=== PATIENT | female | born 1945 | race Caucasian/White ===

== ENCOUNTER 2021-05-23 22:17 | Emergency (ER) | payer MEDICARE, BC, SELFPAY ==
--- NOTE | 2021-05-23 22:22 | ED_ITS ---
HPI - Abdominal Pain General Chief Complaint: Abdominal Pain Stated Complaint: states krishna bowel issues Time Seen by Provider: 05/23/21 22:22 History of Present Illness HPI narrative: 76-year-old female nonsmoker with history of hyperlipidemia presents with her at the request of her primary care provider at the [facility]. She had been having various gastrointestinal issues for the past week or so. She states that started with some nausea that was treated with antiemetics and after few days that seemed to improve but since then she has had abdominal discomfort that seems colicky in nature without any obvious provocation or palliation, perhaps slight improvement briefly after a loose stool. She has had a significant number of loose stools and even has been wearing a pad as she has had leakage from her rectum. She was seen and evaluated earlier today and had an x-ray that shows possible ileus without any obvious signs of obstruction. Exam noted a large amount of firm stool in the rectal vault. She denies any fever or chills. She is not dizzy nor weak or lightheaded. She denies any change in appetite or medications. She denies recent international travel, exposure to bad food or other ill persons. She was given a [facility] past and sent here by her medical team for further evaluation Related Data Home Medications Medication Instructions Recorded Confirmed pravastatin 40 mg tablet 40 mg PO DAILY 05/16/21 05/16/21 Previous Rx's Medication Instructions Recorded ondansetron 4 mg disintegrating 4 - 8 mg PO Q8H PRN #30 tab 05/16/21 tablet doxycycline hyclate 100 mg tablet 100 mg PO BID #20 tab 05/24/21 hyoscyamine sulfate 0.125 mg tablet 0.125 mg PO BID-QID PRN #20 tab 05/24/21 Allergies Allergy/AdvReac Type Severity Reaction Status Date / Time No Known Drug Allergies Allergy Verified 05/23/21 22:44 Review of Systems Review of Systems Narrative: GENERAL: Denies chills, fatigue, malaise, fever, sweats. HEENT: Denies sinus pain, ear pain, sore throat, difficulty swallowing, dizziness. RESPIRATORY: Denies dyspnea, cough, wheezing, hemoptysis, sputum. CARDIOVASCULAR: Denies chest pain, palpitations, orthopnea, edema, GASTROINTESTINAL: See HPI : Denies dysuria, frequency, incontinence, hematuria, urinary retention. MUSCULOSKELETAL: denies weakness, joint pain, or bony pain SKIN: Denies rash, skin lesions, or other NEUROLOGIC: Denies weakness, headache, numbness, change in speech, confusion, seizures, incoordination. PSYCHIATRIC: No concerning psychosocial issues. 12 point review of systems is negative except for those stated above Patient History Medical History Allergies (~1960) Chicken pox (~1953) Eczema (~1999) Gluten intolerance (~2016) Marciano's disease (~2000) Headache (~2019) Herpes (~1989) Hip pain (~2004) Knee pain (~2004) Multiple food allergies (~1989) Osteoarthritis (~2004) Osteoporosis (~2009) Recurrent sinusitis (~1989) Rheumatoid arthritis (~2004) Rosacea (~1999) Shoulder pain (~2004) Surgical History Anesthesia History of cataract removal with insertion of prosthetic lens (~2020) History of hysterectomy (~1988) Family History Father History of heart disease Mother Cancer Brother Mental health problem Grandmother Diabetes mellitus Hypertension Social History Smoking Status: Never smoker Smoking Status: Never smoker Exam Narrative Exam Narrative: GENERAL: [76] year old patient appears stated age. Well-developed patient, in mild distress. HEAD: Atraumatic. Normocephalic. EYES: Pupils equal round and reactive. Extraocular motions intact. No scleral icterus. No injection or drainage. ENT: Nose without bleeding, purulent drainage. Throat without erythema, tonsillar hypertrophy or exudate. Airway patent. NECK: Trachea midline. Non tender CARDIOVASCULAR: Regular rate and rhythm without murmurs, gallops, or rubs. RESPIRATORY: Clear to auscultation. Breath sounds equal bilaterally. No wheezes, rales, or rhonchi. GASTROINTESTINAL: Abdomen soft, no distension, minimal tenderness, decreased bowel sounds throughout EXTREMITIES: No edema or joint tenderness. BACK: Nontender without deformity or crepitance. No flank tenderness. NEURO: AOx3. SKIN: No rash or erythema of visible areas Initial Vital Signs Initial Vital Signs: Vital Signs Temperature 97.9 F 05/23/21 22:41 Pulse Rate 77 05/23/21 22:41 Respiratory Rate 16 05/23/21 22:41 Blood Pressure 165/70 H 05/23/21 22:41 Pulse Oximetry 97 05/23/21 22:41 Course Orders Ordered: ED Orders 05/23/21 22:43 Complete Blood Count AUTO DIFF Stat Comprehensive Metabolic Panel Stat Partial Thromboplastin Time Stat Prothrombin Time INR Stat 05/23/21 22:45 Urine Culture Stat Urine Microscopic Stat 05/23/21 22:57 EKG-12 Lead Stat 05/23/21 23:32 CT abdomen pelvis w con Stat Discontinued Medications Doxycycline Hyclate (Doxycycline Hyclate 100 Mg Tablet) 100 mg PO NOW ONE Stop: 05/24/21 01:51 Last Admin: 05/24/21 02:01 Dose: 100 mg Documented by: GABY Vital Signs Vital signs: Vital Signs - 8 hr 05/23/21 23:30 05/24/21 00:04 05/24/21 00:06 Pulse Rate 70 70 69 Blood Pressure 145/65 H Pulse Oximetry 98 99 05/24/21 00:30 05/24/21 01:00 05/24/21 01:30 Pulse Rate 67 68 66 Blood Pressure 126/63 119/59 L 111/59 L Pulse Oximetry 99 96 96 05/24/21 02:00 Pulse Rate 72 Blood Pressure 119/58 L Pulse Oximetry 95 MDM - Abdominal Pain Lab Data Result diagrams: 05/23/21 22:43 05/23/21 22:43 Labs: Lab Results 05/23/21 05/23/21 05/23/21 Range/Units 22:43 22:43 22:43 WBC 7.5 (4.5-11.0) X10^3/uL RBC 4.43 (4.0-5.2) X10^6/uL Hgb 13.6 (12.0-16.0) g/dL Hct 41.4 (36-46) % MCV 93.4 (80-100) fL MCH 30.7 (26-34) PG MCHC 32.9 (30-36) % RDW 13.1 (11.6-14.8) % Plt Count 274 (150-400) X10^3/uL Neut % (Auto) 47.6 L (50-75) % Lymph % (Auto) 35.0 (25-40) % [place] % (Auto) 10.0 (3-14) % Eos % (Auto) 6.8 H (2-4) % Baso % (Auto) 0.6 (0-2) % Neut # (Auto) 3600 (8073-1435) /uL Lymph # (Auto) 2600 (7395-0038) /uL [place] # (Auto) 800 (0-900) /uL Eos # (Auto) 500 H (0-450) /uL Baso # (Auto) 0 (0-100) /uL PT 11.0 (10.1-12.7) SECONDS INR 1.0 (0.9-1.3) APTT 28 (26.4-36.2) SECONDS Sodium 137 (137-145) mmol/L Potassium 3.8 (3.4-5.1) mmol/L Chloride 101 (98-107) mmol/L Carbon Dioxide 33 H (22-32) mmol/L BUN 9 (7-17) mg/dL Creatinine 0.63 (0.52-1.04) mg/dL Estimated GFR > 60.0 (>60) mL/min BUN/Creatinine Ratio 14.3 (6-22) Glucose 110 (80-110) mg/dL Calcium 9.3 (8.4-10.2) mg/dL Total Bilirubin 0.6 (0.2-1.3) mg/dL AST 31 (14-36) IU/L ALT 27 (<35) IU/L Alkaline Phosphatase 47 (38-126) U/L Total Protein 8.1 (6.3-8.2) g/dL Albumin 4.6 (3.5-5.0) g/dL Globulin 3.5 (1.7-4.1) g/dL Albumin/Globulin Ratio 1.3 (1.0-2.8) Urine RBC (0-5/HPF) Urine WBC (0-5/HPF) Ur Squamous Epith Cells (0-5/HPF) Urine Bacteria (None) Ur Culture Indicated? 05/23/21 Range/Units 22:45 WBC (4.5-11.0) X10^3/uL RBC (4.0-5.2) X10^6/uL Hgb (12.0-16.0) g/dL Hct (36-46) % MCV (80-100) fL MCH (26-34) PG MCHC (30-36) % RDW (11.6-14.8) % Plt Count (150-400) X10^3/uL Neut % (Auto) (50-75) % Lymph % (Auto) (25-40) % [place] % (Auto) (3-14) % Eos % (Auto) (2-4) % Baso % (Auto) (0-2) % Neut # (Auto) (1084-1424) /uL Lymph # (Auto) (3065-2758) /uL [place] # (Auto) (0-900) /uL Eos # (Auto) (0-450) /uL Baso # (Auto) (0-100) /uL PT (10.1-12.7) SECONDS INR (0.9-1.3) APTT (26.4-36.2) SECONDS Sodium (137-145) mmol/L Potassium (3.4-5.1) mmol/L Chloride (98-107) mmol/L Carbon Dioxide (22-32) mmol/L BUN (7-17) mg/dL Creatinine (0.52-1.04) mg/dL Estimated GFR (>60) mL/min BUN/Creatinine Ratio (6-22) Glucose (80-110) mg/dL Calcium (8.4-10.2) mg/dL Total Bilirubin (0.2-1.3) mg/dL AST (14-36) IU/L ALT (<35) IU/L Alkaline Phosphatase (38-126) U/L Total Protein (6.3-8.2) g/dL Albumin (3.5-5.0) g/dL Globulin (1.7-4.1) g/dL Albumin/Globulin Ratio (1.0-2.8) Urine RBC 0-1/hpf (0-5/HPF) Urine WBC 1-5/hpf (0-5/HPF) Ur Squamous Epith Cells 0-1 /hpf (0-5/HPF) Urine Bacteria Occasional (0-1) (None) Ur Culture Indicated? Specimen cultured Point of care testing: Urine Dip Bedside Urine Glucose Negative Bedside Urine Bilirubin - Negative Bedside Urine Ketone - Negative Urine Specific [place] 1.010 Bedside Urine Occult Blood + Bedside Urine pH 6.0 Bedside Urine Protein - Negative Bedside Urine Urobilinogen - Negative Bedside Urine Nitrite - Negative Bedside Urine Leukocytes - Negative Esterase Imaging Data CT scan - abdomen/pelvis: Radiologist's Impression: [address] [address] [address] Scan Report Signed Patient: Mari Gomez MR#: [id number] : 1945 Acct:[id number] Age/Sex: 76 / F Date of Service: 05/23/21 Loc: ED Accession Number: [id number] ?? Procedure: CT abdomen pelvis w con Ordering Provider: Chavo Christopher D.O. PROCEDURE:? CT ABDOMEN PELVIS W CON ? INDICATIONS:? severe pain, decreased BM, sent by PCP ? TECHNIQUE:? After the administration of intravenous contrast, axial sections acquired from the lung bases to the pubic symphysis.? Coronal and sagittal reformats were performed.? For radiation dose reduction, the following was used:? automated exposure control, adjustment of mA and/or kV according to patient size.? ? COMPARISON:? None. ? FINDINGS:? Image quality:? Excellent.? ? Lung bases:? Unremarkable. Heart:? No significant findings. ? ABDOMEN: Liver:? Unremarkable.? ? Gallbladder:? Status post cholecystectomy. Biliary ducts:? Prominence of the extrahepatic bile ducts is likely secondary to prior cholecystectomy. Pancreas:? Unremarkable.? ? Spleen:? Unremarkable.? ? Adrenal Glands:? Unremarkable.? ? Kidneys and Ureters:? Unremarkable.? ? ? Stomach and Bowel:? Bowel wall thickening is seen involving the rectum with perirectal fat stranding and mild presacral edema.? Moderate to large volume of stool is seen in the colon.? Colonic diverticulosis is seen without signs of acute diverticulitis.? No signs of small bowel obstruction. Peritoneum:? No abnormal intraperitoneal fluid.? No free air.? ? Ventral Wall: ? No hernias.? Abdominal Nodes:? No retroperitoneal or mesenteric adenopathy by size criteria.? Vessels:? Aorta and inferior vena cava are normal in size.? Mild aortic atherosclerotic calcifications. ? PELVIS: Pelvic Organs:? Status post hysterectomy.? ? Bladder:? Unremarkable.? ? Pelvic Nodes: No enlarged lymph nodes.? Miscellaneous: No hernias are seen. ? ? ? Bones:? Degenerative changes are seen in the included spine.? Degenerative changes also seen in the hips, greater on the left. ? ? IMPRESSION: 1. Bowel wall thickening and surrounding fat stranding are seen involving the rectum, consistent with a nonspecific proctitis. 2. Colonic diverticulosis without signs of acute diverticulitis.? Moderate to large volume of colonic stool. ? ? Dictated by: Luis Da Silva M.D. on 05/24/2021 at 1:04 ? ? Approved by: Luis Da Silva M.D. on 05/24/2021 at 1:08 ? Discharge Plan Departure Patient Disposition: Home Clinical Impression: Acute proctitis Activity Restrictions/Additional Instructions: *You have been diagnosed with [acute proctitis] *What to do: *Please continue to take your regular medications as directed. [ ] New medication prescriptions sent to your pharmacy: [ ] [x ] New medication written as a paper prescription [ ] No new medications given *Please follow up with your primary care provider in 2-3 days, call for an appointment. Let them know you were seen in the Emergency Department and that we ask that you be seen in follow up. We will electronically transmit a record of today's note if your PCP is in our system. ALso, as we discussed it would be reasonable to follow up with Dr. Palomo of [facility] to follow your progression *please consider a clear liquid diet for the next 48 hours and then slowly advance as tolerated *If you do not have a primary care provider please contact the [facility] Resource line at [phone]. They will ask some questions about your medical history and help get you set up with a doctor in the community. *Return to Emergency Department if you should have any new, worsening or concerning symptoms, such as [fever greater than 101 F, shaking chills, worsening pain, persistent vomiting or other bothersome symptoms] Prescriptions: New hyoscyamine sulfate 0.125 mg tablet 0.125 mg PO BID-QID PRN (Reason: dyspepsia) Qty: 20 0RF doxycycline hyclate 100 mg tablet 100 mg PO BID Qty: 20 0RF No Action pravastatin 40 mg tablet 40 mg PO DAILY 0RF ondansetron 4 mg tablet,disintegrating 4 - 8 mg PO Q8H PRN (Reason: nausea and vomiting) Qty: 30 0RF Referrals: Machelle,Kandi, PA-C [Primary Care Provider] - Omer Palomo MD [Physician] -
[2021-05-23 22:41] VITALS: BP 165/70; PULSE 77; RESP 16; TEMP 36.6; O2SAT 97; BMI 22.1
[2021-05-23 23:08] LABS: Add Manual Diff / Slide Review NO; Basophils Absolute Auto 0 /uL (0-100); Basophils Percent Auto 0.6 % (0-2); Eosinophils Absolute Auto 500 /uL (0-450); Eosinophils Percent Auto 6.8 % (2-4); Hematocrit 41.4 % (36-46); Hemoglobin 13.6 g/dL (12.0-16.0); Lymphocytes Absolute Auto 2600 /uL (1100-4500); Mean Corpuscular HGB Conc 32.9 % (30-36); Mean Corpuscular Hemoglobin 30.7 PG (26-34); Mean Corpuscular Volume 93.4 fL (80-100); Monocytes Absolute Auto 800 /uL (0-900); Neutrophils Absolute Auto 3600 /uL (1500-7000); Neutrophils Percent Auto 47.6 % (50-75); Platelet Count 274 X10^3/uL (150-400); Red Blood Cell Count 4.43 X10^6/uL (4.0-5.2); Red Cell Distribution Width 13.1 % (11.6-14.8); White Blood Cell Count 7.5 X10^3/uL (4.5-11.0)
[2021-05-23 23:11] LABS: PTT Partial Thromboplastin Tim 28 SECONDS (26.4-36.2)
[2021-05-23 23:12] LABS: Alanine Aminotransferase 27 IU/L (<35); Albumin 4.6 g/dL (3.5-5.0); Albumin Globulin Ratio 1.3 (1.0-2.8); Alkaline Phosphatase 47 U/L (38-126); Aspartate Aminotransferase 31 IU/L (14-36); BUN Creatinine Ratio 14.3 (6-22); Bilirubin Total 0.6 mg/dL (0.2-1.3); Blood Urea Nitrogen 9 mg/dL (7-17); Calcium 9.3 mg/dL (8.4-10.2); Carbon Dioxide 33 mmol/L (22-32); Chloride 101 mmol/L (98-107); Estimated Glomerular Filt Rate > 60.0 mL/min (>60); Globulin 3.5 g/dL (1.7-4.1); Glucose 110 mg/dL (80-110); HEMOLYSIS < 15 (0-50); Potassium 3.8 mmol/L (3.4-5.1); Sodium 137 mmol/L (137-145); Total Protein 8.1 g/dL (6.3-8.2)
[2021-05-23 23:13] VITALS: PULSE 64; O2SAT 98
[2021-05-23 23:14] LABS: RBC Urine 0-1/HPF (0-5/HPF); WBC Urine 1-5/HPF (0-5/HPF)
[2021-05-23 23:15] LABS: Bacteria Urine Occasional (0-1); Culture Indicated Urine Specimen Cultured; Squamous Epithelial Cell Urine 0-1 /HPF (0-5/HPF)
[2021-05-23 23:30] VITALS: PULSE 70; O2SAT 98
--- NOTE | 2021-05-23 23:32 | DI.CT.S_ITS ---
PROCEDURE: CT ABDOMEN PELVIS W CON INDICATIONS: severe pain, decreased BM, sent by PCP TECHNIQUE: After the administration of intravenous contrast, axial sections acquired from the lung bases to the pubic symphysis. Coronal and sagittal reformats were performed. For radiation dose reduction, the following was used: automated exposure control, adjustment of mA and/or kV according to patient size. COMPARISON: None. FINDINGS: Image quality: Excellent. Lung bases: Unremarkable. Heart: No significant findings. ABDOMEN: Liver: Unremarkable. Gallbladder: Status post cholecystectomy. Biliary ducts: Prominence of the extrahepatic bile ducts is likely secondary to prior cholecystectomy. Pancreas: Unremarkable. Spleen: Unremarkable. Adrenal Glands: Unremarkable. Kidneys and Ureters: Unremarkable. Stomach and Bowel: Bowel wall thickening is seen involving the rectum with perirectal fat stranding and mild presacral edema. Moderate to large volume of stool is seen in the colon. Colonic diverticulosis is seen without signs of acute diverticulitis. No signs of small bowel obstruction. Peritoneum: No abnormal intraperitoneal fluid. No free air. Ventral Wall: No hernias. Abdominal Nodes: No retroperitoneal or mesenteric adenopathy by size criteria. Vessels: Aorta and inferior vena cava are normal in size. Mild aortic atherosclerotic calcifications. PELVIS: Pelvic Organs: Status post hysterectomy. Bladder: Unremarkable. Pelvic Nodes: No enlarged lymph nodes. Miscellaneous: No hernias are seen. Bones: Degenerative changes are seen in the included spine. Degenerative changes also seen in the hips, greater on the left. IMPRESSION: 1. Bowel wall thickening and surrounding fat stranding are seen involving the rectum, consistent with a nonspecific proctitis. 2. Colonic diverticulosis without signs of acute diverticulitis. Moderate to large volume of colonic stool. Dictated by: Luis Da Silva M.D. on 05/24/2021 at 1:04 Approved by: Luis Da Silva M.D. on 05/24/2021 at 1:08
[2021-05-24 00:04] VITALS: PULSE 70
[2021-05-24 00:06] VITALS: BP 145/65; PULSE 69; O2SAT 99
[2021-05-24 00:30] VITALS: BP 126/63; PULSE 67; O2SAT 99
[2021-05-24 01:00] VITALS: BP 119/59; PULSE 68; O2SAT 96
[2021-05-24 01:30] VITALS: BP 111/59; PULSE 66; O2SAT 96
[2021-05-24 02:00] VITALS: BP 119/58; PULSE 72; O2SAT 95
[2021-05-24] MEDS: DOXYCYCLINE HYCLATE 100 MG TABLET PO (02:01)
== END 2021-05-24 02:22 | disposition home or self-care (01) ==
PROVIDERS: Emergency Provider Emergency Medicine; PCP Physician Assistant
DX: K62.89 Other specified diseases of anus and rectum (principal)
CPT/HCPCS: 36415; 74018; 74177; 80053; 81003; 81015; 85025; 85610; 85730; 87086; 99283; 99284; Q9967

== ENCOUNTER → 2021-05-28 10:59 | Outpatient (CLI) | payer MEDICARE, BC, SELFPAY ==
--- NOTE | 2021-05-28 11:02 | DI.MRI.S_ITS ---
PROCEDURE: MR HEAD/BRAIN WO/W CON INDICATIONS: migraine, left eye ptosis proptosis, balance issues x 6 mo TECHNIQUE: Noncontrast axial T1 spin echo, axial T2 fast spin echo, sagittal and axial FLAIR, coronal T2 fast spin echo, axial gradient echo, axial diffusion and ADC through the brain. After the administration of contrast, axial and coronal T1 spin echo with fat saturation through the brain. High-resolution pre and post-contrast imaging of the orbits is performed. COMPARISON: None. FINDINGS: Image quality: Excellent. CSF spaces: Basal cisterns are patent. No extra-axial fluid collections. Ventricles are normal in size and shape. Brain: No midline shift. No intracranial bleeds or masses. No abnormal intracranial enhancement. There is cerebral volume loss for age. There is periventricular white matter chronic small vessel ischemic change. The brainstem appears normal. Diffusion-weighted images demonstrate no acute ischemic insults. No chronic ischemic insults. Normal intravascular flow voids are present. Skull and face: Calvarial marrow is normal in signal. Orbits appear normal. Sinuses: Mild left maxillary sinus mucosal thickening. Sinuses and mastoids otherwise appear clear. IMPRESSION: 1. No explanation for ptosis, or proptosis. Negative evaluation of the orbits. 2. Mild volume loss and small vessel ischemic disease. 3. No acute process. No recent infarct. Dictated by: Scott Cook M.D. on 05/28/2021 at 12:00 Approved by: Scott Cook M.D. on 05/30/2021 at 13:08
== END ==
PROVIDERS: PCP Physician Assistant; Referring Provider Physician Assistant; Visit Provider Physician Assistant
DX: G43.101 Migraine with aura, not intractable, with status migrainosus (principal); R26.89 Other abnormalities of gait and mobility; H02.402 Unspecified ptosis of left eyelid; H05.20 Unspecified exophthalmos
CPT/HCPCS: 70553; A9579

== ENCOUNTER → 2022-01-21 14:21 | Outpatient (CLI) | payer MEDICARE, BC, SELFPAY ==
--- NOTE | 2022-01-21 14:24 | DI.US.S_ITS ---
LIMITED ULTRASOUND OF LEFT BREAST AND AXILLA: 01/21/2022 CLINICAL: Patient returns today to evaluate a focal asymmetry in the left breast. Comparison is made to exam dated: 12/04/2021 mammogram - [facility]. Color flow and real-time ultrasound of the left breast 4 o'clock, and axilla regions were performed. Martinez scale images of the real-time examination were reviewed. There is a 0.6 cm x 0.6 cm x 0.4 cm oval cyst in the left breast at 4 o'clock anterior depth 2 cm from the nipple. This oval cyst is hypoechoic with a well-defined boundary. This correlates with mammography findings. Color flow imaging demonstrates that there is no vascularity present. No significant abnormalities were seen sonographically in the left axilla. IMPRESSION: PROBABLY BENIGN The 0.6 cm oval cyst in the left breast is consistent with a complicated cyst and is probably benign. A follow-up mammogram and an ultrasound in 6 months is recommended to demonstrate stability. No enlarged left axillary lymph nodes. Exam findings were conveyed to the patient. This exam was interpreted at Station ID: [id number]. Electronically Signed By: Guy Forte M.D. slc/:01/21/2022 15:07:53 letter sent: Followup Recommended Ultrasound BI-RADS: 3 Probably benign
== END ==
PROVIDERS: PCP Physician Assistant; Referring Provider Internal Medicine; Visit Provider Internal Medicine
DX: N60.02 Solitary cyst of left breast; R92.2 Inconclusive mammogram
CPT/HCPCS: 76642

== ENCOUNTER → 2022-02-21 13:13 | Outpatient (CLI) | payer MEDICARE, BC, SELFPAY ==
[2022-02-21 18:41] LABS: Alanine Aminotransferase 31 IU/L (<35); Albumin 4.5 g/dL (3.5-5.0); Albumin Globulin Ratio 1.5 (1.0-2.8); Alkaline Phosphatase 121 U/L (38-126); Aspartate Aminotransferase 44 IU/L (14-36); BUN Creatinine Ratio 19.7 (6-22); Bilirubin Total 0.9 mg/dL (0.2-1.3); Blood Urea Nitrogen 12 mg/dL (7-17); Calcium 9.4 mg/dL (8.4-10.2); Carbon Dioxide 22 mmol/L (22-32); Chloride 102 mmol/L (98-107); Creatine Kinase 78 U/L (30-135); Estimated Glomerular Filt Rate > 60 mL/min (>60); Globulin 3.1 g/dL (1.7-4.1); Glucose 87 mg/dL (80-110); Lipase 127 U/L (23-300); Potassium 4.3 mmol/L (3.4-5.1); Sodium 138 mmol/L (137-145); Total Protein 7.6 g/dL (6.3-8.2)
[2022-02-21 18:46] LABS: HEMOLYSIS 98 (0-50)
[2022-02-21 18:49] LABS: Hematocrit 42.2 % (36-46); Hemoglobin 14.3 g/dL (12.0-16.0); Mean Corpuscular Hemoglobin 32.1 PG (26-34); Mean Corpuscular Volume 94.3 fL (80-100); Red Blood Cell Count 4.47 X10^6/uL (4.0-5.2); Red Cell Distribution Width 13.1 % (11.6-14.8); White Blood Cell Count 6.4 X10^3/uL (4.5-11.0)
[2022-02-21 19:14] LABS: TSH w/ Reflex to FT4 1.79 uIU/mL (0.47-4.68)
[2022-02-21 19:24] LABS: Add Manual Diff / Slide Review YES
[2022-02-21 20:12] LABS: Neutrophils Absolute Manual 3520 /uL (3000-5900); Total Cells Counted 100
[2022-02-21 20:13] LABS: Platelet Count 367 X10^3/uL (150-400); RBC Morphology Normal Morphology
== END ==
PROVIDERS: PCP Physician Assistant; Visit Provider Physician Assistant
DX: E78.2 Mixed hyperlipidemia (principal); M25.519 Pain in unspecified shoulder; R11.0 Nausea; R25.2 Cramp and spasm
CPT/HCPCS: 80053; 82550; 83690; 84443; 85007; 85025

== ENCOUNTER → 2022-12-11 12:00 | Outpatient (CLI) | payer MEDICARE, BC, SELFPAY ==
[2022-12-11 22:10] LABS: Clostridium Difficile Tox PCR Negative for C. diff (Negative)
== END ==
PROVIDERS: PCP Family Medicine; Visit Provider Family Medicine
DX: K92.1 Melena (principal); R15.9 Full incontinence of feces; R19.7 Diarrhea, unspecified
CPT/HCPCS: 87045; 87329; 87493; 87899

== ENCOUNTER → 2023-05-22 09:43 | Outpatient (CLI) | payer MEDICARE, BC, SELFPAY ==
[2023-05-22 19:28] LABS: Add Manual Diff / Slide Review NO; Basophils Absolute Auto 100 /uL (0-100); Basophils Percent Auto 1.2 % (0-2); Eosinophils Absolute Auto 200 /uL (0-450); Hematocrit 41.3 % (36-46); Hemoglobin 13.8 g/dL (12.0-16.0); Lymphocytes Absolute Auto 1700 /uL (1100-4500); Lymphocytes Percent Auto 29.2 % (25-40); Mean Corpuscular HGB Conc 33.4 % (30-36); Mean Corpuscular Hemoglobin 30.8 PG (26-34); Mean Corpuscular Volume 92.1 fL (80-100); Monocytes Absolute Auto 500 /uL (0-900); Monocytes Percent Auto 8.5 % (3-14); Neutrophils Absolute Auto 3300 /uL (1500-7000); Neutrophils Percent Auto 57.1 % (50-75); Platelet Count 222 X10^3/uL (150-400); Red Blood Cell Count 4.49 X10^6/uL (4.0-5.2); Red Cell Distribution Width 13.1 % (11.6-14.8); White Blood Cell Count 5.8 X10^3/uL (4.5-11.0)
[2023-05-22 20:26] LABS: Alanine Aminotransferase 29 IU/L (<35); Albumin 4.1 g/dL (3.5-5.0); Albumin Globulin Ratio 1.3 (1.0-2.8); Alkaline Phosphatase 55 U/L (38-126); Aspartate Aminotransferase 37 IU/L (14-36); BUN Creatinine Ratio 17.4 (6-22); Bilirubin Total 0.7 mg/dL (0.2-1.3); Blood Urea Nitrogen 12 mg/dL (7-17); Calcium 9.5 mg/dL (8.4-10.2); Carbon Dioxide 32 mmol/L (22-32); Chloride 101 mmol/L (98-107); Cholesterol 140 mg/dL (140-199); Estimated Glomerular Filt Rate > 60 mL/min (>60); Globulin 3.2 g/dL (1.7-4.1); Glucose 91 mg/dL (80-110); HDL Cholesterol 74 mg/dL (40-60); HEMOLYSIS < 15 (0-50); LDL Cholesterol Calculated 51 mg/dL (<100); Potassium 4.5 mmol/L (3.4-5.1); Sodium 138 mmol/L (137-145); TSH w/ Reflex to FT4 1.73 uIU/mL (0.47-4.68); Total Protein 7.3 g/dL (6.3-8.2); Triglycerides 77 mg/dL (35-150)
[2023-05-24 06:11] LABS: HBsAg Screen Negative (Negative); Hepatitis A Antibody IgM Negative (Negative); Hepatitis B Core Antibody IgM Negative (Negative); Hepatitis C Antibody Non Reactive (Non Reactive)
[2023-05-27 04:44] LABS: Hepatitis B Surf Ab Qualitativ Reactive (.)
[2023-05-28 09:16] LABS: ANA Screen, IFA Negative (.)
== END ==
PROVIDERS: Family Medicine; PCP Family Medicine; Visit Provider Family Medicine
DX: Z87.19 Personal history of other diseases of the digestive system (principal); R74.01 Elevation of levels of liver transaminase levels; R53.83 Other fatigue; R11.0 Nausea; E78.5 Hyperlipidemia, unspecified; L71.9 Rosacea, unspecified; M06.9 Rheumatoid arthritis, unspecified; M19.90 Unspecified osteoarthritis, unspecified site; M17.0 Bilateral primary osteoarthritis of knee; M16.0 Bilateral primary osteoarthritis of hip; M81.0 Age-related osteoporosis without current pathological fracture; R15.9 Full incontinence of feces; R19.7 Diarrhea, unspecified; K92.1 Melena
CPT/HCPCS: 80053; 80061; 80074; 84443; 85025; 86038; 86706

== ENCOUNTER → 2023-07-08 13:03 | Outpatient (CLI) | payer MEDICARE, BC, SELFPAY | PROVIDERS: PCP Family Medicine; Visit Provider Family Medicine | DX: H04.123 Dry eye syndrome of bilateral lacrimal glands (principal); R68.2 Dry mouth, unspecified | CPT/HCPCS: 86038 ==

== ENCOUNTER → 2023-07-10 12:51 | Outpatient (CLI) | payer MEDICARE, BC, SELFPAY ==
--- NOTE | 2023-07-10 12:54 | DI.RAD.S_ITS ---
PROCEDURE: XR DEXA AXIAL SKELETON INDICATIONS: MENOPAUSE / OSTEOPOROSIS SCREENING COMPARISON: None. FINDINGS: Lumbar Spine: L1-L3. Bone mineral density 1.129 g/cm2, T score 1.0. Left Hip: Bone mineral density 0.945 g/cm2, T score 0.0. Left Femoral Neck: Bone mineral density 0.779 g/cm2, T score -0.6. Right Hip: Bone mineral density 0.887 g/cm2, T score -0.5. Right Femoral Neck: Bone mineral density 0.720 g/cm2, T score -1.2. Fracture Risk Calculation (when applicable): FRAX not provided due to treatment for osteoporosis. (T score greater or equal to -1.0 to: NORMAL) (T score from -1.1 to -2.4: OSTEOPENIA) (T score less than or equal to -2.5: OSTEOPOROSIS) IMPRESSION: Osteopenia. Follow-up guidelines as follows: Osteoporosis: Consider a repeat DEXA and Vertebral Fracture Assessment (VFA) exam in 2 years or sooner if medically necessary, to reassess this patient's status. Osteopenia: Consider a repeat DEXA in 2-3 years to reassess this patient's status, or if there is a new clinical indication. Normal: Consider a repeat DEXA in 5 years or sooner, or if there is a new clinical indication. Dictated by: Guy Forte M.D. on 07/10/2023 at 22:07 Approved by: Guy Forte M.D. on 07/10/2023 at 22:09
== END ==
PROVIDERS: PCP Family Medicine; Referring Provider Family Medicine; Visit Provider Family Medicine
DX: M81.0 Age-related osteoporosis without current pathological fracture (principal); Z78.0 Asymptomatic menopausal state
CPT/HCPCS: 77080

== ENCOUNTER → 2024-05-11 11:58 | Outpatient (CLI) | payer MEDICARE, BC, SELFPAY ==
--- NOTE | 2024-05-11 16:40 | ST.SWALLOW ---
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 Pt reports she has had this swallowing issue for about 6 months, which includes her having pills get stuck in her throat. She reports she takes her pills 1 at a time with water and did not have this issue before. She states she also has noticed she is breathing incorrectly while eating/swallowing and will inhale while swallowing resulting in coughing/choking episodes. reports 1x choking episode on a pill that caused him to worry and almost call 911, however Pt was able to cough it up. Pt will cough on either solids or liquids. Pt states that since she saw the outpatient ST and was given safe swallow tips, her swallowing has improved with fewer choking episodes. She reports she has become more conscious of her swallow and is trying to focus on being more mindful of swallowing. She also noted that she has observed that she is distracted (reading, talking while eating, etc.) and will eat without giving it a thought, which leads to her cough/choking. Subjective Observations Pt was seated in the fluoroscopy chair with directions and procedures described for her. She indicated she understood and agreed to proceed. Patient Positioning Position View Lat-A/P Imaging Lateral View Textures Administered Trials Presented Thin Liquid via Spoon (IDDSI 0 ),Thin Liquid via Cup (IDDSI 0 ),Extremely Thick Liquid via Spoon (IDDSI 4),Regular (IDDSI 7) Barium Tablet Yes The IDDSI Framework Protocol: IDDSI.1 Oral Impairment Source: The Modified Barium Swallow Impairment Profile (MBSImP??) Lip Closure No labial escape Tongue Control During Bolus Hold Cohesive bolus between tongue to palatal seal Bolus Preparation/Mastication Timely & efficient chewing & mashing Bolus Transport/Lingual Motion Brisk tongue motion Initiation of Pharyngeal Swallow Bolus head at pyriforms Additional Oral Impairment Observations *OME and DKS were observed to be WNL. *Dentition natural and in good hygiene *Mastication observed with rotary chew pattern. *Good bolus formation, control and AP transition. Oral phase of swallow observed to be WNL Pharyngeal Impairment Source: The Modified Barium Swallow Impairment Profile (MBSImP??) Soft Palate Elevation No bolus between soft palate & pharyngeal wall Laryngeal Elevation Comp.sup.move.thyroid cart.w/ comp.approx.arytenoids to epiglot petiole Anterior Hyoid Excursion Complete anterior movement Epiglottic Movement Complete inversion Laryngeal Vestibular Closure Complete; no air/contrast in laryngeal vestibule Pharyngeal Stripping Wave Present - complete Pharyngoesophageal Segment Opening Complete distention & complete duration; no obstruction of flow Tongue Base Retraction No contrast between tongue base & posterior pharyngeal wall Pharyngeal Residue Collection of residue within/ on pharyngeal structures Location Valleculae Additional Pharyngeal Impairment Pharyngeal phase of swallow Observations observed to be WNL A/P View Textures Administered Trials Presented Thin Liquid via Spoon (IDDSI 0 ) The IDDSI Framework Protocol: IDDSI.1 A/P View Observations Pharyngeal Contraction Complete Esophageal Clearance Upright Position Complete clearance; esophageal coating Vocal Fold Function Good Esophageal Function WFL Additional A-P Observations Esophageal phase of swallow was observed to be WFL Clinical Impressions Dysphagia Type WNL Findings Pt's swallow was observed to be WNL across all phases. With further discussion, pt noted that she is mindlessly eating while reading or watching TV. Additionally, she and her converse during meals. It was suggested to the pt she increase mindfulness while eating . Additionally, she was encouraged to swallow what is in her mouth before speaking to reduce risk for aspiration. Pt was appreciative of the suggestions. She was also encouraged to schedule an appointment with her ST to review the MBSS and safe swallow strategies Patient Appropriate for Therapy No Recommendations Diet Comments No diet change recommended
== END ==
PROVIDERS: Family Provider Family Medicine; PCP Family Medicine; Referring Provider Family Medicine; Visit Provider Family Medicine
DX: R13.10 Dysphagia, unspecified (principal)
CPT/HCPCS: 74230; 92611

== ENCOUNTER 2024-05-19 10:45 | Outpatient (RCR) | payer MEDICARE, BC, SELFPAY ==
--- NOTE | 2024-04-23 12:24 | ST.OPIE ---
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 Platt, ENT Reason for Referral Dysphagia Setting Assessment Location Outpatient Care Visit Type Note Type Initial evaluation Next Note Type Next Note Type Treatment Note Patient Information Identification Type Name History Pt is a 79 year old female seen this date for swallow evaluation at the referral of Dr. Platt. She is accompanied by her . Pt reports she has had this swallowing issue for about 6 months, which includes her having pills get stuck in her throat. She reports she takes her pills 1 at a time with water and did not have this issue before. She states she also has noticed she is breathing incorrectly while eating/ swallowing and will inhale while swallowing resulting in coughing/choking episodes. reports 1x choking episode on a pill that caused him to worry and almost call 911, however Pt was able to cough it up. Pt reports she will cough on either solids or liquids and consumes regular solids and thin liquids. She states she has become more conscious of her swallow and is trying to focus on not inhaling while swallowing. She states when food/liquid goes down the wrong pipe it will result in a coughing fit. Pt reports PMHx significant for: afib. Reported by Patient/Caregiver Other Symptoms Choking,Coughing,Difficulty swallowing liquids,Difficulty swallowing pills,Difficulty swallowing solids,Food gets stuck Current Diet Regular (IDDSI 7) Baseline Feeding Method Independent in self-feeding The IDDSI Framework Protocol: IDDSI.1 Objective Assessment Mental Status Alert,Responsive,Cooperative Oral Integrity WFL Dentition Within normal limits Comment Oral motor exam revealed natural dentition, good condition. Lingual and labial strengh and ROM appeared WFL. Pt with growth on top of hard palate, which she states she has had for years that has grown larger. She was told by her dentist that she can have it removed if it causes discomfort/swallowing issues, however may grow back. Pt reports it does not cause her any discomfort or swallowing issues that she is aware of. Food and Liquid Trials Position During Assessment Upright (90 degrees) Liquids Trialed Thin (IDDSI 0) Solid Trials Regular (IDDSI 7) Administration Type Controlled cup sip,Self- feeding Oral Impairment Within functional limits Oral Phase Comments Pt consumed 1 anthony cracker and about 4 oz of thin water via cup. She demonstrated adequate sip and bite size and adequate rate. She independently alternated liquids/solids. Pt exhibited good oral acceptance and containment, adequate bolus formation and mastication time with timely ap transport. Pt reports hx of dry mouth and that it has become worse. She states she drinks water all day long. ST provided a handout on dry mouth solutions , such as utilizing a dry mouth gel. Pharyngeal Impairment Within functional limits Pharyngeal Phase Comments No overt s/s of aspiration with all PO trials, such as coughing or choking. Pt reported no feeling of food stuck in throat. Fatigue/Endurance Endurance WNL The IDDSI Framework Protocol: IDDSI.1 Findings Swallowing Function Pharyngeal phase dysphagia Severity of Swallow Impairment Mildly impaired Prognosis Good Impact on Safety and Functioning No limitations Recommendations Instrumental Assessment Yes Swallowing Treatment Yes Frequency 1x/week for 3 months Recommended Solids Regular (IDDSI 7) Recommended Liquids Thin (IDDSI 0) Other Recommendations During today's evaluation Pt presented with WFL swallow function, however based on Pt report Pt with mild pharyngeal dysphagia. ST provided handout on supraglottic swallow strategy for Pt to practice coordinating her breathing while swallowing and prevent s/s of aspiration. ST recommends Pt have a MBS done to guide POC. Safety Precautions/Swallowing Remain upright (90 degrees) Recommendations during all oral intake, Alternate liquids and solids Medication Recommendations One at a Time Education Patient/Caregiver Education Described results of evaluation,Patient expressed understanding of evaluation, Patient expressed agreement with goals & treatment plans, Family/caregivers expressed understanding of evaluation, Family/caregivers expressed agreement with goals & treatment plans,Patient requires further education/ training Goals Short-term Goals STG 1: Pt will participate in Modified Barium Swallow study to further guide POC. STG 2: Pt will tolerate prescribed diet with <5% overt s/s of aspiration/dysphagia with use of compensatory swallowing strategies and minimal cues. STG 3: Pt will complete hyolaryngeal strengthening exercises for improved pharyngeal phase of swallow with minimal cueing with 90% accuracy. Long-term Goals LTG 1: Patient will consume safest and most efficient least restrictive diet with no clinical s/s of aspiration or dysphagia 100% of the time in order to meet primary nutrition/hydration needs.
--- NOTE | 2024-04-23 12:24 | ST.OPPOC ---
Physical, Occupational & Speech Therapy At [facility] Visit Care Team Role Provider Type Jhon Dent MD Family Provider Physician Primary Care Provider Address: [address] [place] [address], [id number] Gaston Platt MD Attending Provider Physician Referring Provider Address: [address] [place] [address], [id number] Speech Pathology Plan of Care Plan of Care Dates 04/23/24-07/21/[address] Platt, ENT Patient History Pt is a 79 year old female seen this date for swallow evaluation at the referral of Dr. Platt . She is accompanied by her . Pt reports she has had this swallowing issue for about 6 months, which includes her having pills get stuck in her throat. She reports she takes her pills 1 at a time with water and did not have this issue before. She states she also has noticed she is breathing incorrectly while eating/swallowing and will inhale while swallowing resulting in coughing/choking episodes. reports 1x choking episode on a pill that caused him to worry and almost call 911, however Pt was able to cough it up. Pt reports she will cough on either solids or liquids and consumes regular solids and thin liquids. She states she has become more conscious of her swallow and is trying to focus on not inhaling while swallowing. She states when food/liquid goes down the wrong pipe it will result in a coughing fit. Pt reports PMHx significant for: afib. Short-term Goals STG 1: Pt will participate in Modified Barium Swallow study to further guide POC. STG 2: Pt will tolerate prescribed diet with <5% overt s/s of aspiration/dysphagia with use of compensatory swallowing strategies and minimal cues. STG 3: Pt will complete hyolaryngeal strengthening exercises for improved pharyngeal phase of swallow with minimal cueing with 90% accuracy. Long-term Goals LTG 1: Patient will consume safest and most efficient least restrictive diet with no clinical s/s of aspiration or dysphagia 100% of the time in order to meet primary nutrition/ hydration needs. Comment: Electronically Signed by: KAREN Morfin 04/23/24 2374 If you are in agreement with this Plan of Care, please return a signed and dated copy. I have reviewed this Plan of Care and certify that the skilled therapy services above are required to meet the patient?s needs. Physician Signature Date Printed Name and Credentials Clinical Instructor Signature Printed Name and Credentials
--- NOTE | 2024-05-19 11:17 | ST.OPTN ---
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 Platt. She is accompanied by her . Pt reports she has had this swallowing issue for about 6 months, which includes her having pills get stuck in her throat. She reports she takes her pills 1 at a time with water and did not have this issue before. She states she also has noticed she is breathing incorrectly while eating/ swallowing and will inhale while swallowing resulting in coughing/choking episodes. reports 1x choking episode on a pill that caused him to worry and almost call 911, however Pt was able to cough it up. Pt reports she will cough on either solids or liquids and consumes regular solids and thin liquids. She states she has become more conscious of her swallow and is trying to focus on not inhaling while swallowing. She states when food/liquid goes down the wrong pipe it will result in a coughing fit. Pt reports PMHx significant for: afib. Subjective Observations/Patient Presentation Pt arrived on time to therapy independently. Objective Short Term Goals STG 1: Pt will participate in Modified Barium Swallow study to further guide POC. - GOAL MET STG 2: Pt will tolerate prescribed diet with <5% overt s/s of aspiration/ dysphagia with use of compensatory swallowing strategies and minimal cues. - GOAL MET STG 3: Pt will complete hyolaryngeal strengthening exercises for improved pharyngeal phase of swallow with minimal cueing with 90% accuracy. - NOT MET d/t Pt not requiring hyolaryngeal strengthening exercises based on MBS, however was educated on safe swallowing strategies which she states she has been doing at home without any issues. Director Athletic Goals LTG 1: Patient will consume safest and most efficient least restrictive diet with no clinical s/s of aspiration or dysphagia 100% of the time in order to meet primary nutrition/ hydration needs. - GOAL MET Treatment Activities Review of MBS, education on safe swallowing strategies Assessment Patient Response to Treatment Excellent Rehab Potential Excellent Impairments Identified Swallow Progress Towards Goals Goals Met,Appropriate for Discharge Assessment of Overall Progress Improving Assessment of Improvement ST reviewed MBS results with Pt, which indicated oral and pharyngeal phases of the swallow WFL. Pt reports she has had no swallowing issues and has made sure to take smaller bites during meals and not talk when eating. She states she has been taking her small supplements without issues and has been consuming her larger pills with yogurt, which has helped with swallowing. She also has increased her awareness with breathing when swallowing. Pt reports continued dry mouth and a dry cough at night, which she is working with her GP and GI doctor on. ST recommended Pt continue to follow safe swallowing strategies and to follow her GI for reflux precautions. Reviewed with Patient Goals,Progress Being Made,Home Exercise Program Patient/Caregiver Understanding Excellent Plan Frequency of Treatment No Further Therapy
== END 2024-05-20 13:13 | disposition home or self-care (01) ==
LOC: SP 10:45
PROVIDERS: Family Provider Family Medicine; PCP Family Medicine; Referring Provider Otolaryngology; Visit Provider Otolaryngology
DX: R13.10 Dysphagia, unspecified (principal); K11.7 Disturbances of salivary secretion
CPT/HCPCS: 92526; 92610

== ENCOUNTER → 2024-06-18 13:30 | Outpatient (CLI) | payer MEDICARE, BC, SELFPAY ==
[2024-06-18 14:03] LABS: Add Manual Diff / Slide Review NO; Basophils Absolute Auto 100 /uL (0-100); Basophils Percent Auto 0.8 % (0-2); Eosinophils Absolute Auto 300 /uL (0-450); Hematocrit 40.8 % (36-46); Lymphocytes Absolute Auto 2500 /uL (1100-4500); Mean Corpuscular HGB Conc 34.3 % (30-36); Mean Corpuscular Hemoglobin 31.1 PG (26-34); Mean Corpuscular Volume 90.8 fL (80-100); Monocytes Absolute Auto 500 /uL (0-900); Monocytes Percent Auto 7.8 % (3-14); Neutrophils Absolute Auto 3500 /uL (1500-7000); Neutrophils Percent Auto 51.4 % (50-75); Platelet Count 260 X10^3/uL (150-400); Red Blood Cell Count 4.49 X10^6/uL (4.0-5.2); Red Cell Distribution Width 13.2 % (11.6-14.8); White Blood Cell Count 6.8 X10^3/uL (4.5-11.0)
[2024-06-18 14:17] LABS: BUN Creatinine Ratio 18.1 (6-22); Blood Urea Nitrogen 13 mg/dL (7-17); Calcium 9.7 mg/dL (8.4-10.2); Carbon Dioxide 32 mmol/L (22-32); Chloride 98 mmol/L (98-107); Estimated Glomerular Filt Rate > 60 mL/min (>60); Glucose 108 mg/dL (80-110); HEMOLYSIS < 15 (0-50); Potassium 4.4 mmol/L (3.4-5.1); Sodium 138 mmol/L (137-145)
== END ==
PROVIDERS: Family Provider Family Medicine; PCP Family Medicine; Referring Provider Family Medicine; Visit Provider Family Medicine
DX: K90.41 Non-celiac gluten sensitivity (principal); E78.2 Mixed hyperlipidemia; I48.0 Paroxysmal atrial fibrillation; M06.00 Rheumatoid arthritis without rheumatoid factor, unspecified site
CPT/HCPCS: 36415; 80048; 85025

== ENCOUNTER → 2024-12-16 08:00 | Outpatient (CLI) | payer MEDICARE, BC, SELFPAY ==
[2024-12-20 14:08] LABS: Calprotectin, Stool < 5 ug/g (0-120)
== END ==
PROVIDERS: Family Provider Family Medicine; PCP Family Medicine; Visit Provider Internal Medicine Gastroenterology
DX: R19.7 Diarrhea, unspecified (principal)
CPT/HCPCS: 83993